=== PATIENT | female | born 1980 | race Caucasian/White ===

== ENCOUNTER → 2018-05-29 16:50 | Outpatient (REF) | payer OTHER, SELFPAY ==
[2018-05-29 17:38] LABS: Basophils % 0.4 % (0.1-2.0); Eosinophils # 0.1 K/mm3 (0.0-0.4); Eosinophils % 1.3 % (0.1-12.0); Hematocrit 44.2 % (37.0-47.0); Hemoglobin 14.2 g/dL (12.2-16.2); Lymphocytes # 2.9 K/mm3 (0.7-4.5); Lymphocytes % 32.8 K/mm3 (10-50); Mean Corpuscular HGB Conc 32.1 g/dL (31.8-35.4); Mean Corpuscular Hemoglobin 30.6 pg (27.0-31.2); Mean Corpuscular Volume 95.3 fl (81-99); Mean Platelet Volume 7.9 fl (7.4-10.4); Monocytes # 0.4 K/mm3 (0.1-1.0); Monocytes % 4.8 % (1.7-9.3); Neutrophils # 5.4 K/mm3 (1.8-7.8); Neutrophils % 60.6 % (37.0-80.0); Platelet Count 336 K/mm3 (142-424); Red Blood Count 4.64 M/mm3 (4.20-5.40); Red Cell Distribution Width 13.4 % (11.5-17.5); White Blood Count 8.8 K/mm3 (4.8-10.8)
[2018-05-29 18:15] LABS: Alanine Aminotransferase 15 U/L (12-78); Albumin Level 4.2 gm/dL (3.4-5.0); Albumin/Globulin Ratio 1.4 (1.1-1.8); Alkaline Phosphatase 62 U/L (46-116); Anion Gap 15.1 mEq/L (5-15); Aspartate Amino Transferase 14 U/L (15-37); Bilirubin,Total 0.4 mg/dL (0.2-1.0); Blood Urea Nitrogen 12 mg/dL (7-18); Calcium 8.8 mg/dL (8.5-10.1); Carbon Dioxide 26 mmol/L (21.0-32.0); Chloride 103 mmol/L (98-107); Chol/HDL Ratio 4.3 (1-3.5); Cholesterol 143 mg/dL (140-200); Creatinine,Serum 0.99 mg/dL (0.55-1.02); Estimated Glomerular Filt Rate 62 ml/min (>60); GFR (African American) 75 ML/MIN (>60); Glucose 91 mg/dL (74-106); HDL Cholesterol 33 mg/dL (29-89); LDL Cholesterol 84 mg/dL (0-130); Potassium 4.1 mmoL/L (3.5-5.1); Sodium 140 mmol/L (136-145); T4 (Thyroxine) 6.8 ug/dl (4.7-13.3); Thyroid Stimulating Hormone 1.71 uIU/ml (0.358-3.740); Total Protein,Serum 7.2 gm/dL (6.4-8.2); Triglycerides 129 mg/dL (30-200); VLDL Cholesterol 26 mg/dL (0-40)
[2018-05-31 18:07] LABS: FSH 20.6 mIU/mL (.); LH 14.7 mIU/mL (.); Vitamin D 25 Hydroxy 49.4 ng/mL (30.0-100.0)
[2018-06-03 09:01] LABS: Estrogen 144 pg/mL (.)
== END ==
LOC: LAB 16:50
PROVIDERS: Visit Provider Physician Assistant
DX: R23.2 Flushing (principal)
CPT/HCPCS: 80053; 80061; 82652; 82672; 83001; 83002; 84436; 84443; 85025

== ENCOUNTER → 2019-04-07 17:34 | Outpatient (CLI) | payer OTHER, SELFPAY ==
[2019-04-07 18:03] LABS: Basophils % 0.2 % (0.1-2.0); Eosinophils % 0.1 % (0.1-12.0); Hematocrit 41.2 % (37.0-47.0); Lymphocytes # 1.3 K/mm3 (0.7-4.5); Lymphocytes % 13.2 % (10-50); Mean Corpuscular HGB Conc 33.9 g/dL (31.8-35.4); Mean Corpuscular Hemoglobin 32.9 pg (27.0-31.2); Mean Corpuscular Volume 96.8 fl (81-99); Mean Platelet Volume 8.2 fl (7.4-10.4); Monocytes # 0.3 K/mm3 (0.1-1.0); Monocytes % 2.7 % (1.7-9.3); Neutrophils % 83.8 % (37.0-80.0); Platelet Count 281 K/mm3 (142-424); Red Blood Count 4.25 M/mm3 (4.20-5.40); Red Cell Distribution Width 13.3 % (11.5-17.5); White Blood Count 9.5 K/mm3 (4.8-10.8)
[2019-04-07 18:25] LABS: Amphetamine/Metha Screen,Urine Negative ng/mL (<1000); Barbiturates Screen,Urine Negative ng/mL (<200); Benzodiazepines Screen,Urine Negative ng/mL (<200); Cannabinoid Screen,Urine Positive ng/mL (<50); Cocaine Screen,Urine Negative ng/mL (<300); Methadone Screen,Urine Negative ng/mL (<300); Opiate Screen,Urine Positive ng/mL (<300); Phencyclidine Screen,Urine Negative ng/mL (<25)
[2019-04-07 19:12] LABS: Alanine Aminotransferase 18 U/L (12-78); Albumin Level 4.2 gm/dL (3.4-5.0); Albumin/Globulin Ratio 1.4 (1.1-1.8); Alkaline Phosphatase 59 U/L (46-116); Amylase 76 U/L (25-115); Anion Gap 13.2 mEq/L (5-15); Aspartate Amino Transferase 6 U/L (15-37); Bilirubin,Total 0.4 mg/dL (0.2-1.0); Blood Urea Nitrogen 13 mg/dL (7-18); Calcium 8.8 mg/dL (8.5-10.1); Carbon Dioxide 26 mmol/L (21.0-32.0); Chloride 104 mmol/L (98-107); Chol/HDL Ratio 4.2 (1-3.5); Cholesterol 178 mg/dL (140-200); Estimated Glomerular Filt Rate 92 ml/min (>60); GFR (African American) 112 ML/MIN (>60); Globulin 3.1 gm/dl (1.3-3.2); Glucose 104 mg/dL (74-106); HDL Cholesterol 42 mg/dL (29-89); LDL Cholesterol 119 mg/dL (0-130); Lipase 179 u/L (73-393); Potassium 4.2 mmoL/L (3.5-5.1); Sodium 139 mmol/L (136-145); T4 (Thyroxine) 7.2 ug/dl (4.7-13.3); Total Protein,Serum 7.3 gm/dL (6.4-8.2); Triglycerides 85 mg/dL (30-200); VLDL Cholesterol 17 mg/dL (0-40)
[2019-04-10 06:21] LABS: Vitamin D 25 Hydroxy 37.6 ng/mL (30.0-100.0)
[2019-04-14 03:36] LABS: Codeine Negative (Cutoff=100); Hydrocodone Positive (.); Hydromorphone Positive (.); Morphine Negative (Cutoff=100)
[2019-04-14 06:21] LABS: Hydrocodone Confirm 104 ng/mL (Cutoff=100); Hydromorphone Confirm 173 ng/mL (Cutoff=100); Opiates Positive (.)
== END ==
PROVIDERS: Visit Provider Nurse Practitioner Family
DX: N39.0 Urinary tract infection, site not specified (principal); R10.30 Lower abdominal pain, unspecified; R30.9 Painful micturition, unspecified; Z79.899 Other long term (current) drug therapy
CPT/HCPCS: 80053; 80061; 80305; 80361; 82150; 82652; 83690; 84436; 84443; 85025; 87086; G0480

== ENCOUNTER → 2019-05-07 08:47 | Outpatient (CLI) | payer OTHER, SELFPAY ==
--- NOTE | 2019-05-07 08:48 | MM_ITS ---
MM Dig screening mamm BI w/CAD ORDERING PHYSICIAN : John Akins MD PATIENT AGE: 39 years GENDER: Female COMPARISON: No previous studies for comparison Baseline mammogram INDICATION: Ordered as a routine screening Note history of Clear discharge from both breast reported past 2 months.* no hormones. Apparently uterus is been removed but both ovaries remain Noncontributory family history TECHNIQUE: Standard CC and MLO images were obtained. R2 CAD reviewed. FINDINGS: Very dense breast bilaterally which. Decreases sensitivity mammography particularly with this is a baseline mammogram. Ultrasound is a useful augment/compliment to mammography in breast of this dense character and is recommended as discussed below . Breast demonstrate moderate asymmetry RIGHT BREAST: Area labeled A: Loose Grouping of microcalcifications seen towards and a 1 cm area towards the axillary tail of right breast.- Seen on MLO view only but warrant follow-up magnification CC and 90 degree views to further evaluate.*Please remind patient not to use antiperspirant she returns for these additional spot views.. . In the right breast A full 90 degree nonmagnification view, nipple profile view right breast (as well as axillary cc view right breast) also suggested to further evaluate the slightly separate island of glandular tissue at the superior right breast seen on today's MLO view, as well as to further evaluate base right nipple. I would suggest starting with ultrasound bilaterally in this case follow spot views to address areas it may be seen on ultrasound LEFT BREAST: Again the very dense character breast limits mammography but there appear to be some scattered areas of nodularity Area labeled W: Suspect small 6.5 mm nodule/ cyst at the medial breast Area labeled X: Question vague 11 mm X up to 16 mm area of density central breast labeled X.- Possible cyst Area labeled Y: small 6 mm probable cyst at the lateral breast Area labeled Z.: Small cluster of most likely benign calcifications lateral retroareolar region I would suggest magnification 90 degree and cc spot views here IMPRESSION: ......... Very dense breast decreases to mammography which significant decreased sensitivity mammography. Warrant additional imaging: ... Recommend starting with bilateral breast ultrasound. With particular Attention to the retroareolar ductal system given history of bilateral clear discharge Bilateral breast ultrasound to the Followed by spot views of breast as prescribed below; (... As well as possibly additional views to address areas seen on the breast ultrasound.) ; Right breast. Grouping of small microcalcifications axial tail of right breast labeled A-warrant magnification views . (Please make sure patient does not use antiperspirant ) Left breast Tiny grouping labeled Z towards retroareolar region left breast would benefit from magnification views Most likely these are grouping of adenosis/fibrocystic calcifications BI-RADS Category: 0 Need Additional Imaging Evaluation RECOMMENDED FOLLOW-UP: IMM - IMMEDIATE FOLLOW-UP RECOMMENDED Ultrasound both breast followed by spot views as described above (A letter has been sent to the patient regarding results of the study.)
[2019-05-07 10:42] LABS: Basophils % 0.3 % (0.1-2.0); Eosinophils % 0.6 % (0.1-12.0); Hemoglobin 13.6 g/dL (12.2-16.2); Lymphocytes # 2.4 K/mm3 (0.7-4.5); Lymphocytes % 35.5 % (10-50); Mean Corpuscular HGB Conc 31.5 g/dL (31.8-35.4); Mean Corpuscular Hemoglobin 30.8 pg (27.0-31.2); Mean Corpuscular Volume 97.8 fl (81-99); Mean Platelet Volume 7.8 fl (7.4-10.4); Monocytes # 0.4 K/mm3 (0.1-1.0); Monocytes % 5.7 % (1.7-9.3); Neutrophils # 3.9 K/mm3 (1.8-7.8); Neutrophils % 57.9 % (37.0-80.0); Platelet Count 255 K/mm3 (142-424); Red Cell Distribution Width 13.2 % (11.5-17.5); White Blood Count 6.7 K/mm3 (4.8-10.8)
[2019-05-07 11:01] LABS: Alanine Aminotransferase 18 U/L (12-78); Albumin/Globulin Ratio 1.4 (1.1-1.8); Alkaline Phosphatase 54 U/L (46-116); Anion Gap 14.9 mEq/L (5-15); Aspartate Amino Transferase 10 U/L (15-37); Bilirubin,Total 0.3 mg/dL (0.2-1.0); Blood Urea Nitrogen 12 mg/dL (7-18); Carbon Dioxide 24 mmol/L (21.0-32.0); Chloride 107 mmol/L (98-107); Chol/HDL Ratio 4.2 (1-3.5); Cholesterol 159 mg/dL (140-200); Creatinine,Serum 0.74 mg/dL (0.55-1.02); Estimated Glomerular Filt Rate 86 ml/min (>60); GFR (African American) 105 ML/MIN (>60); Globulin 2.9 gm/dl (1.3-3.2); Glucose 105 mg/dL (74-106); HDL Cholesterol 38 mg/dL (29-89); LDL Cholesterol 109 mg/dL (0-130); Potassium 3.9 mmoL/L (3.5-5.1); Sodium 142 mmol/L (136-145); Total Protein,Serum 6.9 gm/dL (6.4-8.2); Triglycerides 61 mg/dL (30-200); VLDL Cholesterol 12 mg/dL (0-40)
[2019-05-08 20:49] LABS: FSH 34.4 mIU/mL (.); LH 39.1 mIU/mL (.)
== END ==
PROVIDERS: Nurse Practitioner Obstetrics & Gynecology; PCP Emergency Medicine; Visit Provider Emergency Medicine
DX: Z12.31 Encounter for screening mammogram for malignant neoplasm of breast (principal); Z00.00 Encounter for general adult medical examination without abnormal findings
CPT/HCPCS: 36415; 77067; 80053; 80061; 83001; 83002; 85025

== ENCOUNTER → 2019-05-07 09:42 | Outpatient (CLI) | payer OTHER, SELFPAY | PROVIDERS: Visit Provider Nurse Practitioner Obstetrics & Gynecology | DX: Z00.00 Encounter for general adult medical examination without abnormal findings (principal) | CPT/HCPCS: 36415; 80053; 80061; 83001; 83002; 85025 ==

== ENCOUNTER → 2019-06-08 13:39 | Outpatient (CLI) | payer OTHER, SELFPAY ==
--- NOTE | 2019-06-08 13:49 | US_ITS ---
US breast RT complete INDICATION: Follow-up abnormal mammogram ORDERING PHYSICIAN: Keiry Waggoner APRN PATIENT AGE: 39 years COMPARISON: 05/07/2019 TECHNIQUE: Right breast ultrasound with axilla FINDINGS: 7 x 3 mm complex cyst at 12:00 4 mm complex cyst at 2:00 11 x 4 mm complex cyst at 3:00 8 x 5 mm complex cyst at 4:00 6 mm complicated cyst at 8:00 11 x 5 mm complicated cyst at 9:00 8 x 5 mm complex cyst at 10:00 14 x 6 mm complex cyst No suspicious solid lesions IMPRESSION: Multiple cystic lesions as described above probably benign. Recommend 6 month mammographic and sonographic follow-up BI-RADS Category: 3 Probably Benign Finding Short Term Follow-up RECOMMENDED FOLLOW-UP: 6M - 6 MONTH FOLLOW-UP (A letter has been sent to the patient regarding results of the study.)
--- NOTE | 2019-06-08 13:49 | US_ITS ---
US breast LT complete INDICATION: Follow-up abnormal mammogram ORDERING PHYSICIAN: Keiry Waggoner APRN PATIENT AGE: 39 years COMPARISON: 05/07/2019 TECHNIQUE: Complete left breast ultrasound performed with axilla FINDINGS: There are numerous left breast nodules including a 1.4 similar complex cyst at 12:00, 4 mm complex cyst at 12:00 Oval 6 mm hypoechoic nodule in the subcutaneous tissues at 2:00 near the nipple Complex cyst with mildly thickened wall measuring 7 x 4 mm at 3:00 6 mm cyst at 3:00 near the periareolar region 5 mm cyst at 4:00, 9 mm x 1 mm cystic lesion at 4:00 13 x 3 mm cyst at 6:00, 11 x 6 mm complex cyst at 6:00 near the nipple, 12 x 7 mm cyst at 9:00. No suspicious ultrasound nodules are evident. The patient was supposed to have magnification views of the left breast which were not performed on this same day due to patient's tenderness. The aorta be rescheduled. IMPRESSION: Multiple left breast nodules which appear probably benign. Recommend patient return for magnification views of the left breast so a BI-RADS of the left breast can be given BI-RADS Category: 0 Need Additional Imaging Evaluation RECOMMENDED FOLLOW-UP: IMM - IMMEDIATE FOLLOW-UP RECOMMENDED (A letter has been sent to the patient regarding results of the study.)
== END ==
PROVIDERS: PCP Nurse Practitioner Family; Visit Provider Nurse Practitioner Family
DX: N60.09 Solitary cyst of unspecified breast (principal); R92.8 Other abnormal and inconclusive findings on diagnostic imaging of breast
CPT/HCPCS: 76641

== ENCOUNTER → 2019-06-12 13:39 | Outpatient (CLI) | payer OTHER, SELFPAY ==
--- NOTE | 2019-06-12 13:41 | MM_ITS ---
MM Dig mamm BI DX w/CAD COMPARISON: 05/07/2019, 06/08/2019 INDICATION: Follow-up abnormal mammogram TECHNIQUE: Bilateral spot compression views and mag views. FINDINGS: There is very dense fibroglandular tissue bilaterally decrease in sensitivity of mammography. Right breast: A loosely clustered of calcifications are noted in the deep upper outer aspect of the right breast. Some of these calculi layer on the straight ML view. Possible milk of calcium Other loosely clustered areas of calcification are noted in the retroareolar region and in the medial aspect of the right breast. There are scattered nodular densities of the right breast. There is a 5 mm nodule in the deep upper outer aspect of the right breast. There is a questionable 7 mm nodule in the superior right breast posteriorly. There are multiple cysts noted on the ultrasound of the right breast. Please see that report of 06/08/2019. These may correspond to these nodules. Left breast: There are multiple nodular opacities in the left breast the largest in the central aspect of left breast at 18 mm and may correspond to the cyst noted at 12:00 06/08/2019. Multiple cysts were present on that exam There are scattered clusters of calcification noted in the left breast. These have a somewhat small G appearance and may be due to milk of calcium appearing to somewhat layer on the ML view. IMPRESSION: Probably benign findings. There are bilateral complex cysts noted on ultrasound and there are probably benign calcifications noted on the mammogram some of which appear to layer as milk of calcium. These would be very difficult to localize with stereotactic due to their physician and the density of the breast. Recommend 6 month mammographic and sonographic follow-up. BI-RADS Category: 3 Probably Benign Finding Short Term Follow-up RECOMMENDED FOLLOW-UP: 6M - 6 MONTH FOLLOW-UP (A letter has been sent to the patient regarding results of the study.)
== END ==
PROVIDERS: PCP Emergency Medicine; Visit Provider Emergency Medicine
DX: R92.8 Other abnormal and inconclusive findings on diagnostic imaging of breast (principal)
CPT/HCPCS: 77066

== ENCOUNTER → 2019-09-02 13:14 | Outpatient (CLI) | payer OTHER, SELFPAY ==
[2019-09-02 15:11] LABS: Thyroid Stimulating Hormone 1.08 uIU/ml (0.358-3.740)
[2019-09-03 23:11] LABS: FSH 98.1 mIU/mL (.); Progesterone 0.1 ng/mL (.); Vitamin B12 335 pg/mL (232-1245); Vitamin D 25 Hydroxy 52.8 ng/mL (30.0-100.0)
[2019-09-05 12:26] LABS: Estrogen 111 pg/mL (.)
[2019-09-05 18:19] LABS: Testosterone, Total, LC/MS 17.6 ng/dL (.)
== END ==
PROVIDERS: Visit Provider Nurse Practitioner Psychiatric/Mental Health
DX: Z00.00 Encounter for general adult medical examination without abnormal findings (principal); R53.83 Other fatigue
CPT/HCPCS: 36415; 82607; 82652; 82672; 83001; 84144; 84403; 84443

== ENCOUNTER → 2019-09-04 12:06 | Outpatient (CLI) | payer OTHER, SELFPAY ==
--- NOTE | 2019-09-04 12:07 | US_ITS ---
PROCEDURE: US ABDOMEN LIMITED CLINICAL INDICATION: vomiting COMPARISON: ABD US ABD(COMPLETE-MULTI ORGANS from 05/23/2016 FINDINGS: PANCREAS: Unremarkable. No obvious mass or abnormal fluid collection. No ductal dilatation LIVER: No focal liver lesions demonstrated. Homogeneous echogenicity. No intrahepatic biliary ductal dilatation evident. There is appropriate direction of blood flow within a non dilated portal vein RIGHT KIDNEY: Unremarkable. Normal size and echogenicity. No hydronephrosis GALLBLADDER: No gallstones, gallbladder wall thickening, pericholecystic fluid, or biliary dilatation. IMPRESSION: Unremarkable limited abdominal ultrasound as detailed above disc Dictated by: Tono Greenberg 09/04/2019 14:08 Electronically signed by Tono Greenberg in [facility] 09/04/2019 14:08
== END ==
PROVIDERS: PCP Emergency Medicine; Visit Provider Physician Assistant
DX: R11.10 Vomiting, unspecified (principal)
CPT/HCPCS: 76705

== ENCOUNTER → 2020-07-19 17:27 | Outpatient (CLI) | payer OTHER, SELFPAY ==
[2020-07-19 18:16] LABS: Basophils % 0.6 % (0.1-2.0); Eosinophils # 0.1 K/mm3 (0.0-0.4); Eosinophils % 1.5 % (0.1-12.0); Hematocrit 44.5 % (37.0-47.0); Lymphocytes # 2.7 K/mm3 (0.7-4.5); Lymphocytes % 46.8 % (10-50); Mean Corpuscular HGB Conc 33.8 g/dL (31.8-35.4); Mean Corpuscular Hemoglobin 33.2 pg (27.0-31.2); Mean Corpuscular Volume 98.1 fl (81-99); Mean Platelet Volume 9.6 fl (7.4-10.4); Monocytes # 0.3 K/mm3 (0.1-1.0); Monocytes % 5.4 % (1.7-9.3); Neutrophils # 2.6 K/mm3 (1.8-7.8); Neutrophils % 45.6 % (37.0-80.0); Platelet Count 250 K/mm3 (142-424); Red Blood Count 4.53 M/mm3 (4.20-5.40); Red Cell Distribution Width 13.4 % (11.5-17.5); White Blood Count 5.8 K/mm3 (4.8-10.8)
[2020-07-19 19:32] LABS: Alanine Aminotransferase 11 U/L (12-78); Albumin Level 4.5 g/dl (3.5-5.0); Albumin/Globulin Ratio 1.6 (1.1-1.8); Alkaline Phosphatase 57 U/L (38-126); Anion Gap 13.3 mEq/L (5-15); Aspartate Amino Transferase 23 U/L (14-36); Bilirubin,Total 0.5 mg/dl (0.2-1.3); Blood Urea Nitrogen 17 mg/dl (7-17); Calcium 9.7 mg/dl (8.4-10.2); Carbon Dioxide 27 mmol/L (22.0-30.0); Chloride 102 mmol/L (98-107); Cholesterol 229 mg/dl (140-200); Estimated Glomerular Filt Rate 92 ml/min (>60); GFR (African American) 111 ML/MIN (>60); Globulin 2.8 g/dL (1.3-3.2); Glucose 114 mg/dl (74-100); HDL Cholesterol 38 mg/dl (40-60); Potassium 4.3 mmoL/L (3.5-5.1); Sodium 138 mmol/L (136-145); Total Protein,Serum 7.3 g/dl (6.3-8.2); Triglycerides 124 mg/dl (30-150); VLDL Cholesterol 25 mg/dL (0-40)
[2020-07-19 19:43] LABS: Direct LDL Cholesterol 166.58 mg/dL (100-129)
[2020-07-19 21:49] LABS: Monoscreen (Rapid) Negative (Negative)
[2020-07-19 22:09] LABS: T4 (Thyroxine) 7.5 ug/dl (5.53-11.0)
[2020-07-19 22:22] LABS: Thyroid Stimulating Hormone 1.08 uIU/mL (0.465-4.68)
[2020-07-19 23:42] LABS: 25-OH Vitamin D, Total 36.5 ng/mL (30-100)
[2020-07-21 17:29] LABS: Peripheral Smear Review Scanned Result
[2020-07-22 02:47] LABS: EBV Ab VCA, IgG >600.0 U/mL (0.0-17.9); EBV Ab VCA, IgM <36.0 U/mL (0.0-35.9)
== END ==
PROVIDERS: Visit Provider Physician Assistant
DX: R53.83 Other fatigue (principal); J44.9 Chronic obstructive pulmonary disease, unspecified
CPT/HCPCS: 80053; 80061; 82306; 84436; 84443; 85025; 86318; 86664; 86665

== ENCOUNTER → 2020-07-27 08:59 | Outpatient (CLI) | payer OTHER, SELFPAY ==
--- NOTE | 2020-07-27 09:00 | CA_ITS ---
APPROVED REPORT Exam: Exercise Treadmill Technologist: Annemarie Ramos, Ht: 5 ft 2 in Wt: 107 lbs BSA: 1.46 m2 HR: 52 bpm BP: 115/75 mmHg Rhythm: SINUS MAISHA Indications: Fatigue AND CHEST TIGHTNESS Medical History Medical History: HTN, Heart failure Allergies: PROMETHAZINE Cardiac Risk Factors: HTN, FHX of CAD, Smoking Stress Test Details Test: Manual Treadmill HR Resting HR: 79 bpm Max Heart Rate (APMHR): 178 bpm Max HR Achieved: 109 bpm Target HR (85% APMHR): 151 bpm % of APMHR: 61 Recovery HR: 69 bpm BP Resting BP: 115.0/75.0 mmHg Max BP: 118.0/65.0 mmHg Recovery BP: 113.0/67.0 mmHg ECG Resting ECG: SINUS MAISHA Clinical Exercise duration: 04:32 min Highest Stage Achieved: Exercise capacity: 7.0 METs Stress ECG Conclusion EXERCISED 4:32 ON KHAI PROTOCOL. MAX HEART RATE 109 BPM WHICH IS 61% OF PM FOR AGE. MAX BP 118/65. METS = 7.0. TEST STOPPED DUE TO WEAKNESS AND SOA. WEAKNESS,UNSTEADY GAIT,SOA AND CHEST TIGHTNESS DURING EXERCISE. NO ARRHYTHMIAS/ECTOPY. NORMAL ST RESPONSE TO EXERCISE. NORMAL STRESS EKG'S TO HEART RATE ACHIEVED(61% OF PM). POOR EXERCISE TOLERANCE-BLUNTED HEART RATE ON BETA KATHLEEN. GXT ONLY NO IMAGING. Electronically signed by : Leonardo Ya, 07/30/2020 07:10:26
== END ==
PROVIDERS: PCP Physician Assistant; Visit Provider Physician Assistant
DX: R07.89 Other chest pain (principal); R06.02 Shortness of breath
CPT/HCPCS: 93017

== ENCOUNTER → 2020-08-18 12:51 | Outpatient (CLI) | payer OTHER, SELFPAY | PROVIDERS: PCP Physician Assistant; Visit Provider Physician Assistant | DX: G47.33 Obstructive sleep apnea (adult) (pediatric) (principal); R53.83 Other fatigue | CPT/HCPCS: 95806 ==

== ENCOUNTER → 2020-09-13 12:37 | Outpatient (CLI) | payer OTHER, SELFPAY | PROVIDERS: Visit Provider Internal Medicine Cardiovascular Disease | DX: Z03.818 Encounter for observation for suspected exposure to other biological agents ruled out (principal) | CPT/HCPCS: U0003 ==

== ENCOUNTER → 2021-04-13 12:38 | Outpatient (CLI) | payer OTHER, SELFPAY ==
[2021-04-13 13:30] LABS: Chloride 106 mmol/L (98-107); Potassium 4.2 mmoL/L (3.5-5.1); Sodium 139 mmol/L (136-145)
[2021-04-13 13:33] LABS: Anion Gap 10.2 mEq/L (5-15); Blood Urea Nitrogen 8 mg/dl (7-17); Calcium 9.7 mg/dl (8.4-10.2); Carbon Dioxide 27 mmol/L (22.0-30.0); Estimated Glomerular Filt Rate 109 ml/min (>60); GFR (African American) 132 ML/MIN (>60); Glucose 111 mg/dl (74-100)
[2021-04-13 13:34] LABS: Magnesium 1.9 mg/dl (1.6-2.3)
[2021-04-13 13:42] LABS: NT Pro Brain Natriuretic Pep. 128 pg/mL (0-125)
== END ==
LOC: LAB 12:38 → RT 12:55
PROVIDERS: PCP Nurse Practitioner Family; Visit Provider Internal Medicine Cardiovascular Disease
DX: R06.00 Dyspnea, unspecified (principal); R07.89 Other chest pain; R00.2 Palpitations; I50.9 Heart failure, unspecified; I50.20 Unspecified systolic (congestive) heart failure; Z72.0 Tobacco use
CPT/HCPCS: 36415; 80048; 83735; 83880; 93270

== ENCOUNTER → 2021-05-04 08:17 | Outpatient (CLI) | payer OTHER, SELFPAY ==
--- NOTE | 2021-05-04 08:43 | CT_ITS ---
PROCEDURE: CT ABDOMEN PELVIS WO CON CLINICAL INDICATION: Abd Pain, right lower quadrant pain Lower quadrant pain COMPARISON: CT CT ABDOMEN PELVIS WO CON from 08/27/2019 TECHNIQUE: Axial images obtained with sagittal and coronal reformats. All CT scans at the facility use one or more dose reduction, viz: automated exposure control, ma/kV adjustment per patient size (including targeted exams where dose is matched to indication, i.e. head), or iterative reconstruction technique. FINDINGS: LOWER THORAX: Atelectatic or fibrotic changes are present in the lung bases posteriorly and within the inferior aspect of the lingula. ABDOMEN & PELVIS: The liver, spleen, adrenal glands, pancreas, and kidneys have an unremarkable appearance. No renal or ureteral calculi. No hydronephrosis. No radiopaque gallstones. There are postsurgical changes from prior appendectomy and hysterectomy. Small amount of fluid is present in the pelvis. No intestinal obstruction or free air. There are few colonic diverticula but no evidence of diverticulitis. No acute bony anomalies. Small cortical defect is present in the left femoral neck the IMPRESSION: No acute intra-abdominal or pelvic findings. Dictated by: Fabián Osborn MD 05/04/2021 13:57 Fabián Osborn MD in [facility] 05/04/2021 13:57
[2021-05-04 11:11] LABS: Ferritin 36.3 ng/ml (6.24-137)
== END ==
PROVIDERS: Nurse Practitioner Family; PCP Nurse Practitioner Family; Visit Provider Nurse Practitioner Family
DX: E83.10 Disorder of iron metabolism, unspecified (principal); R10.9 Unspecified abdominal pain; G25.81 Restless legs syndrome
CPT/HCPCS: 36415; 74176; 82728

== ENCOUNTER → 2021-05-10 12:39 | Outpatient (CLI) | payer OTHER, SELFPAY ==
--- NOTE | 2021-05-10 12:45 | XR_ITS ---
PROCEDURE: XR CHEST 2V CLINICAL HISTORY: tobacco use, sob COMPARISON: CR [id number] XR ribs RT min 3V w CXR1V from 04/05/[address] ABDOMEN PELVIS WO CON from 05/04/2021 FINDINGS: The cardiomediastinal silhouette and pulmonary vascularity are within normal limits. COPD. Old granulomatous disease. No lobar consolidation or collapse. No acute bony abnormalities. IMPRESSION: No acute findings. Dictated by: Fabián Osborn MD 05/10/2021 13:18 Fabián Osborn MD in [facility] 05/10/2021 13:18
== END ==
PROVIDERS: PCP Nurse Practitioner Family; Visit Provider Internal Medicine Cardiovascular Disease
DX: R06.00 Dyspnea, unspecified (principal); I50.20 Unspecified systolic (congestive) heart failure; Z72.0 Tobacco use
CPT/HCPCS: 71046; 93306

== ENCOUNTER → 2021-08-24 12:57 | Outpatient (CLI) | payer OTHER, SELFPAY ==
[2021-08-24 13:52] LABS: Amphetamine/Metha Screen,Urine Negative ng/ml (<1000); Barbiturates Screen,Urine Negative ng/ml (<200)
[2021-08-24 13:53] LABS: Benzodiazepines Screen,Urine Negative ng/ml (<200)
[2021-08-24 13:54] LABS: Cannabinoid Screen,Urine Positive ng/ml (<50); Cocaine Screen,Urine Negative ng/ml (<300)
[2021-08-24 13:55] LABS: Methadone Screen,Urine Negative ng/ml (<300); Opiate Screen,Urine Negative ng/ml (<300)
[2021-08-24 13:56] LABS: Phencyclidine Screen,Urine Negative ng/ml (<25)
== END ==
PROVIDERS: Visit Provider Nurse Practitioner Family
DX: G89.29 Other chronic pain (principal); Z79.899 Other long term (current) drug therapy
CPT/HCPCS: 80305

== ENCOUNTER → 2021-10-19 17:36 | Outpatient (CLI) | payer OTHER, SELFPAY ==
[2021-10-19 20:05] LABS: Amphetamine/Metha Screen,Urine Negative ng/ml (<1000); Barbiturates Screen,Urine Negative ng/ml (<200)
[2021-10-19 20:06] LABS: Benzodiazepines Screen,Urine Negative ng/ml (<200)
[2021-10-19 20:07] LABS: Cannabinoid Screen,Urine Positive ng/ml (<50); Cocaine Screen,Urine Negative ng/ml (<300)
[2021-10-19 20:08] LABS: Methadone Screen,Urine Negative ng/ml (<300); Opiate Screen,Urine Negative ng/ml (<300)
[2021-10-19 20:10] LABS: Phencyclidine Screen,Urine Negative ng/ml (<25)
== END ==
PROVIDERS: Visit Provider Nurse Practitioner Family
DX: G89.29 Other chronic pain (principal); Z72.0 Tobacco use
CPT/HCPCS: 80305

== ENCOUNTER → 2021-12-27 17:24 | Outpatient (CLI) | payer OTHER, SELFPAY ==
[2021-12-27 18:51] LABS: Basophils % 0.6 % (0.1-2.0); Eosinophils # 0.1 K/mm3 (0.0-0.4); Eosinophils % 1.3 % (0.1-12.0); Hematocrit 44.9 % (37.0-47.0); Hemoglobin 14.8 g/dL (12.2-16.2); Mean Corpuscular Hemoglobin 33.4 pg (27.0-31.2); Mean Corpuscular Volume 101.3 fl (81-99); Mean Platelet Volume 10.3 fl (7.4-10.4); Monocytes # 0.3 K/mm3 (0.1-1.0); Monocytes % 4.5 % (1.7-9.3); Neutrophils # 2.6 K/mm3 (1.8-7.8); Neutrophils % 43.7 % (37.0-80.0); Platelet Count 251 K/mm3 (142-424); Red Blood Count 4.44 M/mm3 (4.20-5.40); Red Cell Distribution Width 13.3 % (11.5-17.5)
[2021-12-27 18:56] LABS: MANUAL DIFFERENTIAL MANUAL DIFFERENTIAL (MANUAL DIFF)
[2021-12-27 19:01] LABS: Alanine Aminotransferase 9 U/L (12-78); Albumin Level 5.1 g/dl (3.5-5.0); Alkaline Phosphatase 64 U/L (38-126); Aspartate Amino Transferase 21 U/L (14-36); Bilirubin,Total 0.3 mg/dl (0.2-1.3); Blood Urea Nitrogen 11 mg/dl (7-17); Calcium 9.9 mg/dl (8.4-10.2); Chloride 105 mmol/L (98-107); Estimated Glomerular Filt Rate 91 ml/min (>60); GFR (African American) 111 ML/MIN (>60); Globulin 2.5 g/dL (1.3-3.2); Glucose 79 mg/dl (74-100); Potassium 4.9 mmoL/L (3.5-5.1); Total Protein,Serum 7.6 g/dl (6.3-8.2)
[2021-12-27 19:17] LABS: Anion Gap 13.9 mEq/L (5-15); Carbon Dioxide 30 mmol/L (22.0-30.0); Sodium 144 mmol/L (136-145)
[2021-12-27 23:19] LABS: Eosinophils % 3 % (0-3); Lymphocytes % 15 % (10-50); Monocytes % 5 % (2-9); Neutrophils % 46 % (42-76); Platelet Estimate Normal; RBC Morphology Normal; Total Cells Counted 100
== END ==
PROVIDERS: Visit Provider Nurse Practitioner Family
DX: Z00.00 Encounter for general adult medical examination without abnormal findings (principal)
CPT/HCPCS: 80053; 85007; 85025

== ENCOUNTER → 2022-04-13 13:51 | Outpatient (CLI) | payer OTHER, SELFPAY ==
[2022-04-13 14:35] LABS: Basophils # 0.2 K/mm3 (0-0.2); Basophils % 1.8 % (0.1-2.0); Eosinophils # 0.1 K/mm3 (0.0-0.4); Eosinophils % 0.7 % (0.1-12.0); Hematocrit 40.3 % (37.0-47.0); Hemoglobin 13.4 g/dL (12.2-16.2); Lymphocytes # 2.8 K/mm3 (0.7-4.5); Lymphocytes % 28.4 % (10-50); Mean Corpuscular HGB Conc 33.2 g/dL (31.8-35.4); Mean Corpuscular Hemoglobin 33.6 pg (27.0-31.2); Mean Corpuscular Volume 101.4 fl (81-99); Monocytes # 0.3 K/mm3 (0.1-1.0); Monocytes % 3.3 % (1.7-9.3); Neutrophils # 6.4 K/mm3 (1.8-7.8); Neutrophils % 65.8 % (37.0-80.0); Platelet Count 246 K/mm3 (142-424); Red Blood Count 3.98 M/mm3 (4.20-5.40); Red Cell Distribution Width 13.7 % (11.5-17.5); White Blood Count 9.7 K/mm3 (4.8-10.8)
[2022-04-13 14:54] LABS: Alanine Aminotransferase 10 U/L (12-78); Albumin Level 4.1 g/dl (3.5-5.0); Alkaline Phosphatase 60 U/L (38-126); Aspartate Amino Transferase 18 U/L (14-36); Blood Urea Nitrogen 8 mg/dl (7-17); Calcium 9.2 mg/dl (8.4-10.2); Carbon Dioxide 29 mmol/L (22.0-30.0); Chloride 108 mmol/L (98-107); Cholesterol 161 mg/dl (140-200); Estimated Glomerular Filt Rate 91 ml/min (>60); GFR (African American) 110 ML/MIN (>60); Globulin 2.1 g/dL (1.3-3.2); Glucose 88 mg/dl (74-100); HDL Cholesterol 27 mg/dl (40-60); Sodium 142 mmol/L (136-145); Total Protein,Serum 6.2 g/dl (6.3-8.2); Triglycerides 164 mg/dl (30-150); VLDL Cholesterol 33 mg/dL (0-40)
[2022-04-13 15:11] LABS: 25-OH Vitamin D, Total 51.4 ng/mL (30-100); T4 (Thyroxine) 7.4 ug/dl (5.53-11.0)
[2022-04-13 15:17] LABS: Bilirubin,Total < 0.1 mg/dl (0.2-1.3)
== END ==
PROVIDERS: Visit Provider Nurse Practitioner Family
DX: R53.83 Other fatigue (principal); Z79.899 Other long term (current) drug therapy
CPT/HCPCS: 36415; 80053; 80061; 82306; 82533; 84436; 84443; 85025

== ENCOUNTER → 2022-04-14 09:37 | Outpatient (CLI) | payer OTHER, SELFPAY ==
[2022-04-16 12:09] LABS: Adrenocorticotropic Hormone 5.5 pg/mL (7.2-63.3)
== END ==
PROVIDERS: PCP Nurse Practitioner Family; Visit Provider Nurse Practitioner Family
DX: I95.9 Hypotension, unspecified (principal); R53.83 Other fatigue
CPT/HCPCS: 36415; 82024

== ENCOUNTER → 2022-06-22 10:54 | Outpatient (CLI) | payer OTHER, SELFPAY ==
--- NOTE | 2022-06-22 10:55 | MR_ITS ---
FINAL REPORT CLINICAL HISTORY: secondary adrenal insufficiency, DIZZINESS, CRAMPING, SWEATING FINDINGS: Multiplanar MR imaging of the brain was performed without and with contrast. There is no evidence of intracranial hemorrhage or mass. No abnormal extra-axial fluid collection is seen. The ventricular size is within normal limits. There is no evidence of shift of the midline structures. The posterior fossa and brainstem have an unremarkable appearance. No area of abnormal restricted diffusion is identified. No abnormal contrast enhancement is seen. Normal major vessel vascular flow voids are noted. IMPRESSION: No acute intracranial abnormality identified. Reviewed, Interpreted and Dictated by Reginald Jennings III, MD Transcribed by Concepción Jean Authenticated and [facility]
== END ==
PROVIDERS: PCP Nurse Practitioner Family; Visit Provider Specialist
DX: E27.40 Unspecified adrenocortical insufficiency (principal)
CPT/HCPCS: 70553; A9576

== ENCOUNTER 2022-12-11 14:33 | Emergency (ER) | payer OTHER, SELFPAY ==
[2022-12-11 14:46] VITALS: BP 145/103; PULSE 108; RESP 20; TEMP 36.8; O2SAT 96; BMI 22.3
--- NOTE | 2022-12-11 15:08 | CT_ITS ---
FINAL REPORT TECHNIQUE: Postcontrast axial images through the abdomen and pelvis were performed. This study was performed with techniques to keep radiation doses as low as reasonably achievable, (ALARA). Individualized dose reduction techniques using automated exposure control or adjustment of mA and/or kV according to the patient's size were employed. CLINICAL HISTORY: pelvic pain FINDINGS: Abdomen: The lung bases are clear. The liver is normal in size and attenuation. The spleen is unremarkable. The adrenals are normal. The pancreas is unremarkable. The kidneys enhance appropriately. The aorta is normal in caliber. No free fluid or adenopathy is identified. No findings for mechanical bowel obstruction are identified. Pelvis: The appendix is not identified, likely surgically absent. The patient is status post hysterectomy. There is a questionable mass or cyst near the left introitus measuring 2.8 cm. Finding is best seen on axial image 104. The urinary bladder is unremarkable. No free fluid, free air, abscess or adenopathy is identified. IMPRESSION: Questionable mass or cyst near the left introitus. Reviewed, Interpreted and Dictated by Reginald Jennings III, MD Transcribed by Concepción Jean Authenticated and [facility]
[2022-12-11 15:30] VITALS: BP 131/90; PULSE 80; RESP 18; O2SAT 98
--- NOTE | 2022-12-11 15:36 | PC.NURSE ---
PT GOING TO CT
--- NOTE | 2022-12-11 15:38 | HMH.EDGENADL ---
Discharge Plan Disposition Patient Disposition: Home, Self-Care Condition: Fair Prescriptions Prescriptions: New ondansetron [ondansetron] 4 mg tablet,disintegrating 4 mg PO TIDP PRN (Reason: Nausea) Qty: 10 0RF No Action omeprazole 40 mg capsule,delayed release(DR/EC) 40 mg PO DAILY Qty: 90 3RF albuterol sulfate 90 mcg/actuation HFA aerosol inhaler 1 inh inhalation Q4-6H PRN (Reason: soa) Qty: 18 6RF Rx Instructions: INHALE 2 PUFFS BY MOUTH EVERY 4-6 HOURS NEEDED * SHAKE WELL BEFORE USE * ipratropium-albuterol 0.5 mg-3 mg(2.5 mg base)/3 mL solution for nebulization 3 ml INHALATION QID PRN (Reason: shortness of breath or wheezing) Qty: 180 5RF montelukast [Singulair] 10 mg tablet 10 mg PO DAILY ferrous sulfate 47.5 mg iron tablet extended release 143 mg PO DAILY gabapentin 300 mg capsule 300 mg PO TID 30 Days Qty: 90 2RF budesonide-formoterol [Symbicort] 160-4.5 mcg/actuation HFA aerosol inhaler 2 puff INHALATION BID Qty: 10.2 2RF Referrals Follow up/Referrals: Taurus Valencia APRN [Primary Care Provider] - See instructions Ileana Almendarez DO [Staff Physician] - See instructions (left introidus cyst vs mass) Clinical Impressions Clinical Impression: Abdominal pain, Nausea Instructions Patient Instructions: DI for Vomiting -- Adult Discharge ED Provider: [facility] General Adult HPI General Chief complaint: Recheck/Abnormal Lab/Rx Stated complaint: Heart racing, Physician referral Time Seen by Provider: 12/11/22 14:50 Mode of Arrival: Ambulatory Source of Information: Patient Limitations: No Limitations Description of Symptoms (Recalled from ER Triage Doc. by RN): pt to ed sent by clinic for tachycardia. pt states she was being seen for n/v/d and the clinic told her she needed to been seen in the ed for rapid heart rate. pt denies cp or palpitations. History of Present Illness HPI narrative: Patient is a 42-year-old female with past medical history of bulimia, heart failure, COPD who presents with concern for abdominal pain. She says that she has been sick for the last few days. She says that she has been quite nauseous and has been having vomiting. She says she is also been having some abdominal pain that she locates mainly in her suprapubic region. Denies any dysuria or hematuria. Denies any urinary frequency. She has had some episodes of diarrhea during this time as well. She says that her vomit has looked clear. She says that she went into a clinic earlier today to be seen for the nausea and vomiting was told to come here because she was tachycardic. She denies any chest pain or shortness of breath. Related Data Home Medications Medication Instructions Recorded Confirmed ferrous sulfate 143 mg PO DAILY 05/09/21 12/11/22 montelukast 10 mg tablet 10 mg PO DAILY 07/18/22 12/11/22 (Singulair) Previous Rx's Medication Instructions Recorded budesonide-formoterol HFA 160 2 puff inhalation BID #10.2 grams 04/25/22 mcg-4.5 mcg/actuation aerosol inhaler (Symbicort) albuterol sulfate 90 mcg/actuation 1 inh inhalation Q4-6H PRN soa #18 05/10/22 aerosol inhaler grams ipratropium 0.5 mg-albuterol 3 mg 3 ml inhalation QID PRN shortness 05/10/22 (2.5 mg base)/3 mL nebulization of breath or wheezing #180 mL soln omeprazole 40 mg capsule,delayed 40 mg PO DAILY #90 caps 05/10/22 release gabapentin 300 mg capsule 300 mg PO TID 30 days #90 caps 10/10/22 ondansetron 4 mg disintegrating 4 mg PO TIDP PRN Nausea #10 tabs 12/11/22 tablet Allergies Allergy/AdvReac Type Severity Reaction Status Date / Time promethazine [From PHENERGAN] Allergy Unknown NA-SLEEPY Verified 12/11/22 13:36 cariprazine [From Vraylar] AdvReac Severe Anaphylaxis Verified 12/11/22 13:36 [facility] Disclaimer: The information contained in this section may have been updated after the patient was seen, as this information can be updated by other users. Medi
[2022-12-11 15:42] LABS: Basophils # 0.1 K/mm3 (0-0.2); Eosinophils # 0.1 K/mm3 (0.0-0.4); Hematocrit 49.5 % (37.0-47.0); Hemoglobin 16.1 g/dL (12.2-16.2); Lymphocytes # 2.3 K/mm3 (0.7-4.5); Lymphocytes % 21.3 % (10-50); Mean Corpuscular HGB Conc 32.5 g/dL (31.8-35.4); Mean Corpuscular Hemoglobin 32.3 pg (27.0-31.2); Mean Corpuscular Volume 99.3 fl (81-99); Mean Platelet Volume 8.7 fl (7.4-10.4); Monocytes # 0.5 K/mm3 (0.1-1.0); Monocytes % 4.4 % (1.7-9.3); Neutrophils # 7.9 K/mm3 (1.8-7.8); Neutrophils % 72.3 % (37.0-80.0); Platelet Count 348 K/mm3 (142-424); Red Blood Count 4.99 M/mm3 (4.20-5.40); Red Cell Distribution Width 13.9 % (11.5-17.5)
[2022-12-11 15:46] LABS: Chloride 107 mmol/L (98-107); Potassium 4.1 mmoL/L (3.5-5.1); Sodium 144 mmol/L (136-145)
[2022-12-11 15:48] LABS: Blood Urea Nitrogen 20 mg/dl (7-17); Creatinine Clearance Estimated 43 mL/min (50-200); Estimated Glomerular Filt Rate 41 ml/min (>60); GFR (African American) 49 ML/MIN (>60)
[2022-12-11 15:49] LABS: Alanine Aminotransferase 20 U/L (12-78); Albumin Level 5.3 g/dl (3.5-5.0); Albumin/Globulin Ratio 1.4 (1.1-1.8); Alkaline Phosphatase 105 U/L (38-126); Anion Gap 19.1 mEq/L (5-15); Aspartate Amino Transferase 29 U/L (14-36); Bilirubin,Total 0.6 mg/dl (0.2-1.3); Calcium 10.2 mg/dl (8.4-10.2); Carbon Dioxide 22 mmol/L (22.0-30.0); Globulin 3.7 g/dL (1.3-3.2); Glucose 108 mg/dl (74-100); Lipase 368 U/L (23-300)
[2022-12-11 15:50] LABS: Lactic Acid 1.3 mmol/L (0.7-2.1)
[2022-12-11 15:55] LABS: C-Reactive Protein 1.3 mg/L (0-4)
[2022-12-11 16:01] VITALS: BP 150/98; PULSE 64; RESP 16; O2SAT 97
[2022-12-11 16:05] LABS: HCG Qualitative, Serum Negative (Negative)
[2022-12-11 16:30] VITALS: BP 149/109; PULSE 74; RESP 18; O2SAT 97
[2022-12-11 17:01] LABS: Microscopic, Urine URINE MICROSCOPIC (MICROSCOPIC)
[2022-12-11 17:06] LABS: Appearance,Urine SL CLOUDY (Clear); Bilirubin,Urine Negative (Negative); Blood, Urine TRACE-L (Negative); Color,Urine YELLOW (Yellow); Glucose,Urine (UA) Negative (Negative); Ketones,Urine Negative (Negative); Leukocyte Esterase,Urine Negative (Negative); Nitrate,Urine Negative (Negative); Protein,Urine Negative (Negative); Specific Gravity, Urine <= 1.005 (1.005-1.030); Urobilinogen,Urine 0.2 EU/dl (0.2)
--- NOTE | 2022-12-11 17:10 | PC.NURSE ---
pt's visitor expressed frustration about his wait time for results and scans to come back. states this is ridiculous. and we have been here for hours. charge nurse notified to speak with the patient.
[2022-12-11 17:21] LABS: Bacteria,Urine Trace /lpf; RBC,Urine Occasional #/hpf (0-3)
[2022-12-11 17:26] VITALS: BP 110/80; PULSE 80; RESP 16; O2SAT 98
--- NOTE | 2022-12-11 17:33 | PC.NURSE ---
approx 1715- entered pts room to round on pt. Pt and visitor who is at reported to me they were unhappy about pts length of stay in ER. Explained to pt and visitor that we are currently waiting on CT scan results. Primary nurse just sent up urine sample for analysis, those results generally take 10-15 minutes. ER MD is wanting pt to have a 2nd Liter of IVF. Visitor reports to me that pt was not even sent up here to for her stomach, her blood pressure was the problem . Explained to visitor I took report from provider at clinic ([facility]), who reported to me she was concerned about pt persistent n/v/d and concerned from dehydration r/t pt heart rate elevation upon standing. Explained to him that based on ER providers exam he is also evaluating pt for dehydration and ordered at CT scan to evaluate pts abd/pelvis. At the same time of this discussion other nursing staff contacting radiology to get and estimated time of results for pt CT scan. Pt is agreeable to have second liter if IVF started until Ct scan results are back. Rad staff stated the CT scan is in a locked status which they report to me means CT is being read. Explained this to pt and visitor, who verbalized understanding that we expect CT results to be back soon, assured pt that we will have radiology watching for the results in their system.
[2022-12-11 17:53] VITALS: BP 112/84; PULSE 81; RESP 17; TEMP 36.8; O2SAT 99
== END 2022-12-11 17:56 | disposition home or self-care (01) ==
PROVIDERS: Emergency Provider Student in an Organized Health Care Education/Training Program; PCP Nurse Practitioner Family
DX: R00.0 Tachycardia, unspecified (principal); R10.2 Pelvic and perineal pain; R11.0 Nausea; I50.9 Heart failure, unspecified; J44.9 Chronic obstructive pulmonary disease, unspecified; G89.4 Chronic pain syndrome; F32.A Depression, unspecified; F17.210 Nicotine dependence, cigarettes, uncomplicated
CPT/HCPCS: 74177; 80053; 81001; 83605; 83690; 84703; 85025; 86140; 96361; 96374; 96375; 99285; J2405; Q9967

== ENCOUNTER → 2023-04-10 08:32 | Outpatient (CLI) | payer OTHER, SELFPAY ==
[2023-04-10 17:38] LABS: Adenovirus,PCR Not Detected (NotDetected); Coronavirus 229E Not Detected (NotDetected); Coronavirus NL63 Not Detected (NotDetected); Coronavirus OC43 Not Detected (NotDetected); Coronovirus HKU1,PCR Not Detected (NotDetected); Human Metapneumovirus Not Detected (NotDetected); Influenza A, PCR Not Detected (NotDetected); Influenza AH1, 2009 Not Detected (NotDetected); Influenza AH1, PCR Not Detected (NotDetected); Influenza AH3,PCR Not Detected (NotDetected); Influenza B, PCR Not Detected (NotDetected); Parainfluenza 1, PCR Not Detected (NotDetected); Rhinovirus/Enterovirus Not Detected (NotDetected)
[2023-04-10 17:40] LABS: Bordetella Pertussis Not Detected (NotDetected); Chlamydophila Pneumoniae, PCR Not Detected (NotDetected); Coronavirus 19, PCR Not Detected (NotDetected); Mycoplasma Pneumoniae, PCR Not Detected (NotDetected); Parainfluenza 4, PCR Not Detected (NotDetected); Respiratory Syncytial Virus Not Detected (NotDetected)
[2023-04-10 19:03] LABS: Parainfluenza 2, PCR Not Detected (NotDetected); Parainfluenza 3, PCR Not Detected (NotDetected)
== END ==
PROVIDERS: PCP Nurse Practitioner Family; Visit Provider Nurse Practitioner Family
DX: R11.2 Nausea with vomiting, unspecified (principal)
CPT/HCPCS: 87581; 87632; 87798; C9803; U0003; U0005

== ENCOUNTER 2024-01-08 19:49 | Outpatient (CLI) | payer OTHER, SELFPAY ==
[2024-01-08 19:16] LABS: Coronavirus 19, PCR Not Detected (NotDetected); Influenza A, PCR Not Detected (NotDetected); Influenza B, PCR Not Detected (NotDetected)
== END 2024-01-08 23:59 ==
LOC: LAB.DROPOF 19:49
PROVIDERS: PCP Nurse Practitioner Family; Visit Provider Nurse Practitioner Family
DX: R50.9 Fever, unspecified (principal); M79.18 Myalgia, other site
CPT/HCPCS: 87636